=== PATIENT | female | born 1970 | race Caucasian/White ===

== ENCOUNTER 2017-05-29 22:33 | Emergency (ER) | payer SELFPAY ==
[~2017-05-29] VITALS: Ht 162.6 cm; Wt 90.0 kg
[2017-05-29 22:36] VITALS: BP 138/87; PULSE 75; RESP 16; TEMP 98.1; O2SAT 99
[2017-05-29] MEDS ORDERED: SODIUM CHLOR 0.9% 1000 ML INJ 1,000 ML IV SCH (22:55)
[2017-05-29 23:00] VITALS: BP 150/70; PULSE 76; RESP 15; O2SAT 99
[2017-05-29] MEDS ORDERED: SODIUM CHLORIDE 0.9% FLUSH 10 ML FLUSH IV FLUSH PRN (23:00)
[2017-05-29] MEDS ORDERED: MORPHINE SULFATE 4 MG/ML INJ IV PUSH ONE (23:00)
[2017-05-29] MEDS ORDERED: RESP: ALBUTEROL 2.5 MG/IPRATROPIUM 0.5 MG NEB (SCH) NEB ONE (23:00)
[2017-05-29] MEDS ORDERED: ONDANSETRON HCL 4 MG/2 ML VIAL IVP ONE (23:00)
[2017-05-29] MEDS ORDERED: FAMOTIDINE 20 MG/2 ML VIAL IV PUSH ONE (23:00)
[2017-05-29 23:35] VITALS: BP 109/57; PULSE 72; RESP 15; O2SAT 98
[2017-05-29 23:48] LABS: AUTOMATED NEUTROPHIL # 15.2 TH/MM3 (1.8-7.7); BASOPHIL % 0.2 % (0.0-2.0); EOSINOPHIL # 0.2 TH/MM3 (0-0.4); EOSINOPHIL % 0.8 % (0.0-4.0); HEMATOCRIT 41.3 % (35.0-46.0); HEMO FLAGS DIFF FINAL; LYMPH % 16.5 % (9.0-44.0); LYMPHOCYTE # 3.2 TH/MM3 (1.0-4.8); MEAN CELL VOLUME 87.1 FL (80.0-100.0); MEAN CORPUSCULAR HEMOGLOBIN 30.1 PG (27.0-34.0); MEAN CORPUSCULAR HGB CONC 34.6 % (32.0-36.0); MONO % 4.6 % (0.0-8.0); NEUT % 77.9 % (16.0-70.0); PLATELET COUNT 272 TH/MM3 (150-450); RED BLOOD COUNT 4.74 MIL/MM3 (4.00-5.30); RED CELL DISTRIBUTION WIDTH 13.5 % (11.6-17.2); WHITE BLOOD COUNT 19.5 TH/MM3 (4.0-11.0)
--- NOTE | 2017-05-29 23:49 | RADRPT ---
EXAM DATE/TIME: 05/29/2017 23:17 [facility] COMPARISON: No previous studies available for comparison. INDICATIONS : Right upper quadrant pain. MEDICAL HISTORY : Alcohol use. SURGICAL HISTORY : section. ENCOUNTER: Initial ACUITY: 1 day PAIN SCORE: 10/10 LOCATION: Right upper quadrant MEASUREMENTS: LIVER: 20.4 cm length COMMON DUCT: 8 mm RIGHT KIDNEY: 12.8 x 5.1 x 4.7 cm FINDINGS: LIVER: Liver is enlarged measuring up to 20 cm with diffuse increased echogenicity mild heterogeneity. There is no focal mass or ductal dilatation. There is no ascites. COMMON DUCT: No intraluminal mass or stone visualized. GALLBLADDER: Contains no stones, demonstrates no wall thickening or pericholecystic fluid. PANCREAS: The visualized portions are within normal limits. RIGHT KIDNEY: No evidence of hydronephrosis, stone, or mass. CONCLUSION: 1. The liver is enlarged with findings characteristic of fatty infiltration. 2. Unremarkable gallbladder with no evidence of cholelithiasis. 3. Dilatation of the common bile duct measuring up to 8 mm with no visualized filling defect or stone . There is no evidence of intrahepatic biliary ductal dilatation. Ariel Patino MD on May 29, 2017 at 23:46 Board Certified Radiologist. This report was verified electronically.
[2017-05-29 23:55] LABS: APTT (PATIENT) 26.8 SEC (24.3-30.1); PROTHROMBIN TIME - PATIENT 10.5 SEC (9.8-11.6)
[2017-05-29 23:58] LABS: BACTERIA, URINE MANY /hpf; BLOOD, URINE NEG (NEG); COMMENT (UR) CULTURE INDICATED; CULTURE IF INDICATED CULTURE INDICATED; GLUCOSE,URINE NEG (NEG); KETONE, URINE 10 mg/dL (NEG); MUCUS URINE FEW /lpf (OCC); NITRITE,URINE NEG (NEG); PH, URINE 5.5 (5.0-8.5); SQUAMOUS EPITHELIAL CELL URINE 4 /hpf (0-5); URINE COLOR YELLOW (YELLW/STRAW)
[2017-05-30] VITALS: BP 136/63; PULSE 80; RESP 15; O2SAT 99
[2017-05-30 00:02] LABS: BICARBONATE 22.7 MEQ/L (21.0-32.0); POTASSIUM 3.9 MEQ/L (3.5-5.1)
[2017-05-30 00:05] LABS: INDIRECT BILIRUBIN 0.1 MG/DL (0.0-0.8); TOTAL BILIRUBIN ADULT 0.3 MG/DL (0.2-1.0)
[2017-05-30] MEDS ORDERED: IOHEXOL 350 MG/ML 10 ML VIAL (for RAD DIAG) IVCONTRAST ONE (00:34)
--- NOTE | 2017-05-30 00:48 | RADRPT ---
EXAM DATE/TIME: 05/30/2017 00:26 [facility] COMPARISON: US ABDOMEN - GALLBLADDER, May 29, 2017, 23:17. INDICATIONS : Abdominal pain. Abnormal ultrasound with dilatation of the common bile duct. Hepatic steatosis. IV CONTRAST: 81 cc Omnipaque 350 (iohexol) IV ORAL CONTRAST: No oral contrast ingested. RADIATION DOSE: 18.52 CTDIvol (mGy) MEDICAL HISTORY : None SURGICAL HISTORY : section. ENCOUNTER: Initial ACUITY: 2 weeks PAIN SCALE: 10/10 LOCATION: abdomen TECHNIQUE: Volumetric scanning of the abdomen and pelvis was performed. Using automated exposure control and ad justment of the mA and/or kV according to patient size, radiation dose was kept as low as reasonably achievable to obtain optimal diagnostic quality images. DICOM format image data is available electro nically for review and comparison. FINDINGS: LOWER LUNGS: The visualized lower lungs are clear. LIVER: The liver appears mildly prominent with diffuse moderate hepatic steatosis. The common bile duct is m ildly prominent measuring 7-8 mm with no focal stone or mass. This tapers normally at the level of th e pancreas. There is no dilation of the biliary tree. No calcified gallstones. SPLEEN: Normal size without lesion. PANCREAS: Within normal limits. KIDNEYS: Normal in size and shape. There is no mass, stone or hydronephrosis. ADRENAL GLANDS: Within normal limits. VASCULAR: There is no aortic aneurysm. BOWEL/MESENTERY: The stomach, small bowel, and colon demonstrate no acute abnormality. There is no free intraperitone al air or fluid. ABDOMINAL WALL: Within normal limits. RETROPERITONEUM: There is no lymphadenopathy. BLADDER: No wall thickening or mass. REPRODUCTIVE: Within normal limits. INGUINAL: There is no lymphadenopathy or hernia. MUSCULOSKELETAL: Within normal limits for patient age. CONCLUSION: 1. The liver is at the upper limits of normal in size with moderate hepatic steatosis. 2. The common bile duct again appears prominent measuring up to approximately 7-8 mm with no stone or filling defect. Ariel Patino MD on May 30, 2017 at 0:44 Board Certified Radiologist. This report was verified electronically.
[2017-05-30] MEDS ORDERED: LIDOCAINE VISCOUS 2% SOLN 15 ML UDC PO ONE (01:00)
[2017-05-30] MEDS ORDERED: diphenhydrAMINE HCL 50 MG/ML VIAL IV PUSH ONE (01:00)
[2017-05-30] MEDS ORDERED: ALUMINUM/MAGNESIUM/SIMETH 30 ML CUP PO ONE (01:00)
[2017-05-30] MEDS ORDERED: MACR100C2 PO (02:37)
--- NOTE | 2017-05-30 02:37 | PD ---
HPI Chief Complaint: GI Complaint Time Seen by Provider: 22:49 Travel History International Travel<30 days: No Contact w/Intl Traveler<30days: No Traveled to known affect area: No History of Present Illness HPI Patient is a 46 year old female who comes in complaining of abdominal pain and vomiting. She says the pain started 5-6 hrs prior to arrival after eating a hamburger. She says she has been having a lot of issues with GERD lately. She says she had a bowel movement earlier in the day and it was soft. She denies fever or chills. She has not taken anything for her symptoms. [facility], [facility] Past Medical History Medical History: Denies Significant Hx ?: Not : 5 Para: 5 Past Surgical History Section: Yes (X4) Social History Alcohol Use: Yes (RARE) Tobacco Use: Yes (5 CIG/PERDAY) Substance Use: No Allergies-Medications (Allergen,Severity, Reaction): Coded Allergies: No Known Allergies (Unverified , 05/29/17) Reported Meds & Prescriptions Reported Meds & Active Scripts Active No Active Prescriptions or Reported Medications Review of Systems Except as stated in HPI: all other systems reviewed are Neg General / Constitutional: No: Fever, Chills HENT: No: Headaches, Lightheadedness Cardiovascular: No: Chest Pain or Discomfort Respiratory: No: Shortness of Breath Gastrointestinal: Positive: Nausea, Vomiting, Abdominal Pain Musculoskeletal: No: Myalgias, Pain Skin: No Rash, No Change in Pigmentation Neurologic: No: Weakness, Dizziness Physical Exam Narrative GENERAL: Awake and alert, in no acute distress. SKIN: Focused skin assessment warm/dry. HEAD: Atraumatic. Normocephalic. EYES: Pupils equal and round. No scleral icterus. ENT: Mucous membranes pink and moist. NECK: Trachea midline. No JVD. CARDIOVASCULAR: Regular rate and rhythm. No murmur appreciated. RESPIRATORY: No accessory muscle use. Clear to auscultation. Breath sounds equal bilaterally. GASTROINTESTINAL: Abdomen soft, nondistended. Tender to palpation in the mid epigastric area as well as right upper quadrant. Also tender to the suprapubic area. No rebound or guarding. MUSCULOSKELETAL: No obvious deformities. No clubbing. No cyanosis. No edema. NEUROLOGICAL: Awake and alert. No obvious cranial nerve deficits. Motor grossly within normal limits. Normal speech. PSYCHIATRIC: Appropriate mood and affect; insight and judgment normal. Data Data Last Documented VS Vital Signs Date Time Temp Pulse Resp B/P (MAP) Pulse Ox O2 Delivery O2 Flow Rate FiO2 05/30/17 00:00 80 15 136/63 (87) 99 Room Air 05/29/17 22:36 98.1 Orders Orders Basic Metabolic Panel (Bmp) (05/29/17 22:55) Complete Blood Count With Diff (05/29/17 22:55) Lipase (05/29/17 22:55) Prothrombin Time / Inr (Pt) (05/29/17 22:55) Act Partial Throm Time (Ptt) (05/29/17 22:55) Urinalysis - C+S If Indicated (05/29/17 22:55) Iv Access Insert/Monitor (05/29/17 22:55) Ecg Monitoring (05/29/17 22:55) Oximetry (05/29/17 22:55) Morphine Inj (Morphine Inj) (05/29/17 23:00) Ondansetron Inj (Zofran Inj) (05/29/17 23:00) Sodium Chlor 0.9% 1000 Ml Inj (Ns 1000 M (05/29/17 22:55) Sodium Chloride 0.9% Flush (Ns Flush) (05/29/17 23:00) Famotidine Inj (Pepcid Inj) (05/29/17 23:00) Ed Urine Pregnancytest Poc (05/29/17 22:55) Hepatic Functional Panel (05/29/17 22:55) Albuterol-Ipratropium Neb (Duoneb Neb) (05/29/17 23:00) Us Abdomen Gallbladder (05/29/17 ) Ct Abd/Pel W Iv Contrast(Rout) (05/29/17 ) Urine Culture (05/29/17 22:55) Iohexol 350 Inj (Omnipaque 350 Inj) (05/30/17 00:34) Al-Mag Hy-Si 40-40-4 Mg/Ml Liq (Mag-Al P (05/30/17 01:00) Lidocaine 2% Viscous (Xylocaine 2% Visco (05/30/17 01:00) Diphenhydramine Inj (Benadryl Inj) (05/30/17 01:00) Labs Laboratory Tests Test 11/25/17 22:55 White Blood Count 19.5 TH/MM3 Red Blood Count 4.74 MIL/MM3 Hemoglobin 14.3 GM/DL Hematocrit 41.3 % Mean Corpuscular Volume 87.1 FL Mean Corpuscular Hemoglobin 30.1 PG Mean Corpuscular Hemoglobin Concent 34.6 % Red Cell Distribution Width 13.5 % Platelet Count 272 TH/MM3 Mean Platelet Volume 8.9 FL Neutrophils (%) (Auto) 77.9 % Lymphocytes (%) (Auto) 16.5 % Monocytes (%) (Auto) 4.6 % Eosinophils (%) (Auto) 0.8 % Basophils (%) (Auto) 0.2 % Neutrophils # (Auto) 15.2 TH/MM3 Lymphocytes # (Auto) 3.2 TH/MM3 Monocytes # (Auto) 0.9 TH/MM3 Eosinophils # (Auto) 0.2 TH/MM3 Basophils # (Auto) 0.0 TH/MM3 CBC Comment DIFF FINAL Differential Comment Prothrombin Time 10.5 SEC Prothromb Time International Ratio 1.0 RATIO Activated Partial Thromboplast Time 26.8 SEC Urine Color YELLOW Urine Turbidity HAZY Urine pH 5.5 Urine Specific [place] 1.026 Urine Protein NEG mg/dL Urine Glucose (UA) NEG mg/dL Urine Ketones 10 mg/dL Urine Occult Blood NEG Urine Nitrite NEG Urine Bilirubin NEG Urine Urobilinogen LESS THAN 2.0 MG/DL Urine Leukocyte Esterase NEG Urine RBC 1 /hpf Urine WBC 2 /hpf Urine Squamous Epithelial Cells 4 /hpf Urine Bacteria MANY /hpf Urine Mucus FEW /lpf Microscopic Urinalysis Comment CULTURE INDICATED Blood Urea Nitrogen 11 MG/DL Creatinine 0.69 MG/DL Random Glucose 121 MG/DL Total Protein 7.4 GM/DL Albumin 3.9 GM/DL Calcium Level 8.6 MG/DL Alkaline Phosphatase 94 U/L Aspartate Amino Transf (AST/SGOT) 13 U/L Alanine Aminotransferase (ALT/SGPT) 13 U/L Total Bilirubin 0.3 MG/DL Direct Bilirubin 0.2 MG/DL Sodium Level 138 MEQ/L Potassium Level 3.9 MEQ/L Chloride Level 105 MEQ/L Carbon Dioxide Level 22.7 MEQ/L Anion Gap 10 MEQ/L Estimat Glomerular Filtration Rate 92 ML/MIN Indirect Bilirubin 0.1 MG/DL Lipase 126 U/L [facility] Medical Decision Making Medical Screen Exam Complete: Yes Emergency Medical Condition: Yes Differential Diagnosis Cholecystitis versus cholelithiasis versus pancreatitis versus UTI Narrative Course Patient is a 46-year-old female comes in complaining of abdominal pain. Exam shows tenderness to the epigastric area as well as suprapubic area. IV established, labs sent. Labs show an elevated white blood cell count, other labs are within normal limits. Ultrasound of the gallbladder performed shows mild dilatation of the common bile duct, no stones no evidence of cholecystitis. CT abdomen and pelvis performed shows no acute abnormalities. Urinalysis is positive for bacteria. She was given IV fluids, pain medicine, GI cocktail. She'll be discharged with a prescription for Macrobid. She is advised follow-up gastroenterology. Advised to return to the ED as needed for any worsening symptoms. Diagnosis Primary Impression: UTI (urinary tract infection) Qualified Codes: N30.00 - Acute cystitis without hematuria Additional Impression: Abdominal pain Qualified Codes: R10.9 - Unspecified abdominal pain Referrals: Gm Bui MD call for appointment Patient Instructions: Abdominal Pain (ED), General Instructions, Urinary Tract Infection in Women (ED) Additional Instructions: Follow-up with gastroenterology. Take all of your antibiotic. You can try over- the-counter antacids for relief of pain. Return to the ED as needed for any worsening symptoms. Scripts Nitrofurantoin Monohydrate Macrocrystals (Macrobid) 100 Mg Capsule 100 MG PO BID for Infection for 5 Days, #10 CAP 0 Refills Prov: Paulette Chapa MD 05/30/17 Disposition: 01 DISCHARGE HOME Condition: Stable Paulette Chapa MD May 30, 2017 02:37
[2017-05-30 02:49] VITALS: BP 142/76
== END 2017-05-30 03:00 | disposition home or self-care (01) ==
LOC: NEPC 22:33
DX: N39.0 Urinary tract infection, site not specified (principal); B96.1 Klebsiella pneumoniae [K. pneumoniae] as the cause of diseases classified elsewhere; K76.0 Fatty (change of) liver, not elsewhere classified; R11.2 Nausea with vomiting, unspecified; K21.9 Gastro-esophageal reflux disease without esophagitis; F17.210 Nicotine dependence, cigarettes, uncomplicated
CPT/HCPCS: 74177; 76705; 80048; 80076; 81001; 83690; 84703; 85025; 85610; 85730; 87077; 87086; 87186; 94664; 96361; 96374; 96375; 99285; J1200; J2270; J2405; J7030; Q9967